=== PATIENT | female | born 1935 | race Two or more races ===

== ENCOUNTER → 2020-07-17 | Emergency (ER) | payer OTHER ==
[~2020-07-17] VITALS: Ht 160 cm; Wt 59.0 kg
[~2020-07-17] MED LIST: ALTACE10 MG; ARICEPT5 MG; CHILDREN'S ASPI81 MG; LIPITOR40 M1; MIRTAZAPINE30 M1; PLAVIX75 MG
== END | disposition designated cancer center or children's hospital (05) ==
LOC: ER 13:52
DX: S06.6X0A Traumatic subarachnoid hemorrhage without loss of consciousness, initial encounter (principal); W18.39XA Other fall on same level, initial encounter; Y93.89 Activity, other specified; Y92.098 Other place in other non-institutional residence as the place of occurrence of the external cause; Y99.8 Other external cause status; G30.9 Alzheimer's disease, unspecified; F02.80 Dementia in other diseases classified elsewhere, unspecified severity, without behavioral disturbance, psychotic disturbance, mood disturbance, and anxiety; I10 Essential (primary) hypertension; Z11.52 Encounter for screening for COVID-19

== ENCOUNTER 2020-11-13 19:20 | Inpatient (IN) | payer OTHER ==
[~2020-11-13] VITALS: Ht 160 cm; Wt 52.2 kg
== END 2020-12-03 07:45 | disposition expired | DRG 592 ==
LOC: ER 19:20 → SEC-K 11-14 09:41 → MEDJ 11-14 11:30
PROVIDERS: ADMIT Internal Medicine; ATTEND Internal Medicine
PROC: 30233N1 Transfusion of Nonautologous Red Blood Cells into Peripheral Vein, Percutaneous Approach (ICD-10-PCS; 2020-11-14)
PROC: 4A033R1 Measurement of Arterial Saturation, Peripheral, Percutaneous Approach (ICD-10-PCS; 2020-11-14)
PROC: 02HV33Z Insertion of Infusion Device into Superior Vena Cava, Percutaneous Approach (ICD-10-PCS; 2020-11-15)
PROC: 5A1955Z Respiratory Ventilation, Greater than 96 Consecutive Hours (ICD-10-PCS; principal; 2020-11-18)
PROC: 4A12X4Z Monitoring of Cardiac Electrical Activity, External Approach (ICD-10-PCS; 2020-11-19)
PROC: 0W9B3ZX Drainage of Left Pleural Cavity, Percutaneous Approach, Diagnostic (ICD-10-PCS; 2020-11-25)
DX: L89.153 Pressure ulcer of sacral region, stage 3 (principal); J96.00 Acute respiratory failure, unspecified whether with hypoxia or hypercapnia; A41.9 Sepsis, unspecified organism; J69.0 Pneumonitis due to inhalation of food and vomit; R65.21 Severe sepsis with septic shock; I96 Gangrene, not elsewhere classified; N39.0 Urinary tract infection, site not specified; E46 Unspecified protein-calorie malnutrition; Z99.11 Dependence on respirator [ventilator] status; J90 Pleural effusion, not elsewhere classified; I82.A11 Acute embolism and thrombosis of right axillary vein; L89.623 Pressure ulcer of left heel, stage 3; L89.613 Pressure ulcer of right heel, stage 3; G30.9 Alzheimer's disease, unspecified; F02.80 Dementia in other diseases classified elsewhere, unspecified severity, without behavioral disturbance, psychotic disturbance, mood disturbance, and anxiety; Z20.822 Contact with and (suspected) exposure to COVID-19; I25.10 Atherosclerotic heart disease of native coronary artery without angina pectoris; Z95.1 Presence of aortocoronary bypass graft; Z74.01 Bed confinement status; D64.9 Anemia, unspecified; Z66 Do not resuscitate; I10 Essential (primary) hypertension